=== PATIENT | female | born 1985 | race Caucasian/White ===

== ENCOUNTER 2016-07-01 21:37 | Emergency (ER) | payer OTHER ==
[~2016-07-01 21:37] MED LIST: ADDERALL; ADDERALL PO; ALBUTEROL17 GM; ALBUTEROL17 GM INH; ALPRAZOLAM; AMOXICILLI250 MG/5 M PO; BACTRIM DS TABL1 TA1 PO; LORTAB 7.5-3251 EACH; NO MEDICATIONS; PHENERGAN; PHENERGAN25 M1 PO; PREDNISOLO15 MG/5 ML PO; PREDNISONE PO; PROMETHAZINE D118 ML PO; ZITHROMAX200 MG/5 M PO
[2016-07-01 21:42] LABS: URINE SOURCE CLEAN CATCH
[2016-07-01 21:44] LABS: URINE APPEARANCE HAZY; URINE BILIRUBIN NEG (NEG); URINE BLOOD 3+ (NEG); URINE COLOR YELLOW; URINE GLUCOSE NEG (NORM); URINE KETONE NEG (NEG); URINE LEUKOCYTE ESTERASE 3+ (NEG); URINE NITRATE NEG (NEG); URINE PH 6.5 (5-8); URINE PROTEIN TRACE (NEG); URINE UROBILINOGEN 0.2 MG/DL (NORM)
[2016-07-01 21:49] LABS: MICRO INDICATED? YES
[2016-07-01 21:50] LABS: CULTURE INDICATED? YES; URINE BACTERIA NEG (NEG); URINE MUCUS PRESENT; URINE SQUAMOUS EPITHELIAL CELL OCCAS /[HPF]; URINE TRANSITIONAL EPI CELLS FEW /[HPF]; URINE WBC 200-300 /[HPF] (0-5)
[2016-07-01 22:07] LABS: BASOPHIL# 0.1 X10e3 (0-0.3); BASOPHIL% 0.6 % (0-2.5); EOSINOPHIL# 0.3 X10e3 (0-0.7); EOSINOPHIL% 2.1 % (0.0-7.0); HEMATOCRIT 40.6 % (35.0-45.0); HEMOGLOBIN 13.8 gm/dL (12.0-16.0); LYMPHOCYTE# 1.9 X10e3 (1.0-3.5); LYMPHOCYTE% 16.1 % (17.0-45.0); MEAN CELL VOLUME 88.5 FL (83-96); MEAN CORPUSCULAR HEMOGLOBIN 30.1 PG (28-34); MEAN PLATELET VOLUME 8.1 FL (6.5-11.5); MONOCYTE# 0.7 X10e3 (0-1.0); MONOCYTE% 5.4 % (3.0-12.0); NEUTROPHIL# 9.1 X10e3 (1.5-7.1); NEUTROPHIL% 75.8 % (40-75); PLATELET COUNT 213 X10e3 (140-420); RED BLOOD COUNT 4.59 X10e (3.90-5.30); RED CELL DISTRIBUTION WIDTH 13.6 % (11.0-15.5)
[2016-07-01 22:09] LABS: DIFF IND NO
[2016-07-01 22:24] LABS: BUN/CREATININE RATIO 11.11; CALCIUM SERUM 8.9 mg/dL (8.4-10.2); CREATININE SERUM 0.9 mg/dL (0.6-1.4); GLOM FILT RATE Estimated 86.5 mL/min (>60); POTASSIUM 3.7 mmol/L (3.5-5.1)
== END 2016-07-01 23:15 | disposition home or self-care (01) ==
LOC: SED 21:37
PROVIDERS: Physician Assistant
DX: O23.11 Infections of bladder in pregnancy, first trimester (principal); F41.9 Anxiety disorder, unspecified; J45.909 Unspecified asthma, uncomplicated; F32.9 Major depressive disorder, single episode, unspecified; O99.331 Smoking (tobacco) complicating pregnancy, first trimester; Z3A.00 Weeks of gestation of pregnancy not specified; Z79.899 Other long term (current) drug therapy
CPT/HCPCS: 80048; 81003; 84702; 84703; 85025; 87086; 87088; 87186; 96361; 96374; 96375; 99284; J0696; J1885